=== PATIENT | female | born 1950 | race Caucasian/White ===

== ENCOUNTER 2025-02-27 16:56 | Emergency (ER) | payer MEDICARE, MEDICAID, SELFPAY ==
[2025-02-27] VITALS (12 sets, daily range): BP systolic 154–174; BP diastolic 83–97; PULSE 85–94; TEMP 36.7; O2SAT 97–99; BMI 25.1
--- NOTE | 2025-02-27 17:19 | CT_ITS ---
The [address] [address] Patient Name: NYA EVANS MRN: [id number] date: 1950 Sex: F Assigned Patient Location: ED.MAIN Current Patient Location: ED.MAIN Accession/Order Number: [id number] Exam Date: 02/27/2025 18:20 Report Date: 02/27/2025 18:21 At the request of: IRIS VIVEROS Procedure: CT head/brain wo con Unenhanced head CT TECHNIQUE: Contiguous axial imaging of the head. The CT exam was performed using one or more the following dose reduction techniques: Automated exposure control, adjustment of the MA and/or Kv according to patient size, or use of the iterative reconstruction technique. COMPARISON: None HISTORY: Increasing confusion. VENTRICLES: Within normal limits ATROPHY: Mild atrophy BRAIN PARENCHYMA: Decreased density of the white matter is most consistent with chronic small vessel disease. HEMORRHAGE: None HERNIATION: No mass effect or herniation INFARCTION: No recent vascular distribution infarction is seen. EXTRA-AXIAL FLUID COLLECTIONS None MIDBRAIN: Unremarkable MARIAN: Unremarkable MEDULLA: Unremarkable SINUSES: Unremarkable ORBITS: Grossly unremarkable MASTOIDS: Unremarkable BONY STRUCTURES Intact ADDITIONAL FINDINGS: CT/CT head/brain wo con IMPRESSION: No acute findings. Impression dictated by: Sergio Campos M.D. 02/27/2025 6:21 PM Dictation Location: [place] [address] Electronically authenticated by: [id number] Y Date: 02/27/2025 18:21
--- NOTE | 2025-02-27 17:19 | XR_ITS ---
The [place] [id number] Patient Name: NYA EVANS MRN: [id number] date: 1950 Sex: F Assigned Patient Location: ED.MAIN Current Patient Location: ED.MAIN Accession/Order Number: [id number] Exam Date: 02/27/2025 18:19 Report Date: 02/27/2025 18:20 At the request of: IRIS VIVEROS Procedure: XR chest 1V Plain film chest Single view HISTORY: Increasing confusion. Lower extremity edema COMPARISON: None FINDINGS: SUPPORT DEVICES: None POSTSURGICAL CHANGES: None HEART: Within normal limits PULMONARY VI: Within normal limits MEDIASTINUM: Unremarkable LUNGS AND PLEURA: No acute lung process, pleural effusion or pneumothorax identified. Mild atelectasis BONY STRUCTURES: Degenerative change ADDITIONAL FINDINGS None XR/XR chest 1V IMPRESSION: No acute process. Impression dictated by: Sergio Campos M.D. 02/27/2025 6:20 PM Dictation [facility] Electronically authenticated by: [id number] Y Date: 02/27/2025 18:20
--- NOTE | 2025-02-27 17:19 | ECG_ITS ---
The 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 Measurements Intervals [place] Rate: 87 P: 76 OR: 166 QRS: 61 QRSD: 84 T: 78 QT: 360 QTc: 405 Interpretive Statements 1100 Sinus rhythm 9110 normal ECG No previous ECG available for comparison Electronically Signed On 02-27-2025 20:08:08 EDT by ADEN WAN M.D.
--- NOTE | 2025-02-27 17:19 | PC.NURSE ---
[facility] pharmacy in [place] phoned and obtained allergies and med list.
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
[2025-02-27 17:44] LABS: Basophils Percent Auto 0.5 % (0.2-2.0); Eosinophils Absolute Auto 0.1 10^3/uL (0.0-0.7); Eosinophils Percent Auto 1.5 % (0.9-7.0); Hematocrit 36.4 % (36.0-48.0); Hemoglobin 12.1 g/dL (12.0-16.0); Immature Granulocytes Abs Auto 0.01 10^3/uL (0.00-0.03); Immature Granulocytes Pct Auto 0.2 % (0.0-0.5); Lymphocytes Absolute Auto 1.3 10^3/uL (1.2-3.8); Lymphocytes Percent Auto 22.2 % (20.5-60.0); Mean Corpuscular HGB Conc 33.2 g/dL (29.9-35.2); Mean Corpuscular Hemoglobin 30.3 pg (26.7-34.0); Mean Corpuscular Volume 91.2 fL (81.0-99.0); Mean Platelet Volume 9.6 fL (9.5-13.5); Monocytes Absolute Auto 0.4 10^3/uL (0.3-0.8); Monocytes Percent Auto 6.3 % (1.7-12.0); Neutrophils Absolute Auto 4.2 10^3/uL (1.4-6.5); Neutrophils Percent Auto 69.3 % (43.0-75.0); Platelet Count 278 10^3/uL (150-450); Red Blood Count 3.99 10^6/uL (4.20-5.40); Red Cell Distribution Width 12.9 % (11.0-15.0)
[2025-02-27 17:50] LABS: Bilirubin Urine NEGATIVE (NEGATIVE); Blood Urine NEGATIVE (NEGATIVE); Clarity Urine CLEAR (CLEAR); Color Urine LT. YELLOW (YELLOW); Glucose Urine UA NEGATIVE (NEGATIVE); Ketones Urine TRACE mg/dL (NEGATIVE); Leukocyte Esterase Urine NEGATIVE (NEGATIVE); Nitrite Urine NEGATIVE (NEGATIVE); Protein Urine NEGATIVE (NEG/TRACE); Specific Gravity Urine <=1.005 (1.005-1.025); Urobilinogen Urine 0.2 EU/dL (0.2-1.0)
[2025-02-27 17:59] LABS: Bacteria Urine TRACE #/HPF (NONE SEEN); Cast Seen? NONE SEEN #/LPF (NONE SEEN); Crystals Seen? None Seen #/HPF (None Seen); Mucus Urine NONE SEEN (NONE SEEN); RBC Urine NONE SEEN #/HPF (0-2); Squamous Epithelial Cell Urine NONE SEEN #/LPF (NONE/RARE); Urine Culture Indicated NO; WBC Urine NONE SEEN #/HPF (NONE SEEN)
[2025-02-27 18:09] LABS: Lactate/Lactic Acid 0.5 mmol/L (0.4-2.0)
[2025-02-27 18:17] LABS: Alanine Aminotransferase 27 U/L (14-59); Alkaline Phosphatase 73 U/L (46-116); Anion Gap 13.8; Aspartate Amino Transferase 25 U/L (15-37); BUN Creatinine Ratio 23.9; Bilirubin Total 0.5 mg/dL (0.2-1.0); Calcium 9.1 mg/dL (8.5-10.1); Carbon Dioxide 28.6 mmol/L (21.0-32.0); Chloride 104 mmol/L (98-107); Estimated GFR (African America >60 (>=60 mL/min/1.73m^2); Estimated GFR (Non-African Ame >60 (>=60 mL/min/1.73m^2); Glucose 109 mg/dL (74-106); Potassium 3.4 mmol/L (3.5-5.1); Sodium 143 mmol/L (136-145)
[2025-02-27 18:18] LABS: Albumin Globulin Ratio 1.2; Albumin Level 3.5 g/dL (3.4-5.0); Total Protein 6.5 g/dL (6.4-8.2)
[2025-02-27 18:19] LABS: TSH W/ REFLEX FT4 2.907 uIU/mL (0.358-3.740); Troponin I High Sensitivity 11.9 pg/mL (4.0-51.3)
[2025-02-27 18:30] LABS: Ethanol <3 mg/dL
[2025-02-27] MEDS: KETOROLAC TROMETHAMINE 30 MG/ML VIAL 15 MG IVP (18:46)
[2025-02-27] MEDS: ACETAMINOPHEN 500 MG TABLET 1000 MG PO (18:46)
== END 2025-02-27 19:06 | disposition home or self-care (01) ==
PROVIDERS: Personal Emergency Response Attendant; Emergency Provider Emergency Medicine; PCP Student in an Organized Health Care Education/Training Program
DX: R52 Pain, unspecified (principal); R41.82 Altered mental status, unspecified; R41.3 Other amnesia; F51.3 Sleepwalking [somnambulism]; M13.88 Other specified arthritis, other site; R60.0 Localized edema; Z91.81 History of falling; Z79.899 Other long term (current) drug therapy
CPT/HCPCS: 36415; 70450; 71045; 80053; 80320; 81001; 83605; 83880; 84443; 84484; 85025; 93005; 96374; 99285; J1885

== ENCOUNTER 2025-03-04 11:26 | Emergency (ER) | payer MEDICARE, MEDICAID, SELFPAY ==
[2025-03-04 11:31] VITALS: BP 166/88; PULSE 83; TEMP 36.6; O2SAT 98; BMI 41.2
--- NOTE | 2025-03-04 11:45 | ECG_ITS ---
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 Measurements Intervals [place] Rate: 61 P: 66 ND: 160 QRS: 28 QRSD: 86 T: 50 QT: 396 QTc: 400 Interpretive Statements 1100 Sinus rhythm 8102 Low QRS voltage in chest leads 9120 atypical ECG Compared to ECG 02/27/2025 17:10:40 Low QRS voltage now present Electronically Signed On 03-04-2025 19:28:21 EDT by ADEN WAN M.D.
--- NOTE | 2025-03-04 11:45 | CT_ITS ---
The [address] [address] Patient Name: NYA EVANS MRN: [id number] date: 1950 Sex: F Assigned Patient Location: ER Current Patient Location: ER Accession/Order Number: [id number] Exam Date: 03/04/2025 12:25 Report Date: 03/04/2025 12:26 At the request of: FELY VITAL MD Procedure: CT head/brain wo con CT BRAIN WITHOUT CONTRAST: CLINICAL HISTORY: ams COMPARISON: CT brain 02/27/2025 TECHNIQUE: Contiguous axial unenhanced images were obtained through the brain. This CT exam was performed using one or more following dose reduction techniques: Automated exposure control, adjustment of the mA and/or kV according to patient size, or use of iterative reconstruction technique. FINDINGS: There is no evidence of midline shift, intra or extra-axial fluid collection, hemorrhage or CT evidence of stroke. Cortical atrophy with chronic microvascular ischemic changes. Posterior fossa appears unremarkable. Visualized intraorbital contents demonstrate no acute findings. Visualized paranasal sinuses are clear. The surrounding soft tissues are normal. CT/CT head/brain wo con IMPRESSION: NO ACUTE INTRACRANIAL ABNORMALITY. Impression dictated by: Luisito Kent Jr., D.O. 03/04/2025 12:26 PM Dictation Location: [place] [address] Electronically authenticated by: [id number] Y Date: 03/04/2025 12:26
[2025-03-04 12:15] LABS: Basophils Percent Auto 0.7 % (0.2-2.0); Eosinophils Absolute Auto 0.1 10^3/uL (0.0-0.7); Eosinophils Percent Auto 1.2 % (0.9-7.0); Hematocrit 38.8 % (36.0-48.0); Hemoglobin 12.7 g/dL (12.0-16.0); Immature Granulocytes Abs Auto 0.02 10^3/uL (0.00-0.03); Immature Granulocytes Pct Auto 0.3 % (0.0-0.5); Lymphocytes Absolute Auto 1.3 10^3/uL (1.2-3.8); Lymphocytes Percent Auto 22.1 % (20.5-60.0); Mean Corpuscular HGB Conc 32.7 g/dL (29.9-35.2); Mean Corpuscular Volume 91.7 fL (81.0-99.0); Mean Platelet Volume 9.3 fL (9.5-13.5); Monocytes Absolute Auto 0.4 10^3/uL (0.3-0.8); Neutrophils Absolute Auto 4.1 10^3/uL (1.4-6.5); Neutrophils Percent Auto 69.7 % (43.0-75.0); Platelet Count 276 10^3/uL (150-450); Red Blood Count 4.23 10^6/uL (4.20-5.40); Red Cell Distribution Width 13.2 % (11.0-15.0); White Blood Count 5.9 10^3/uL (4.0-11.0)
[2025-03-04 12:32] LABS: Alanine Aminotransferase 27 U/L (14-59); Albumin Globulin Ratio 1.2; Albumin Level 3.7 g/dL (3.4-5.0); Alkaline Phosphatase 80 U/L (46-116); Anion Gap 13.4; Aspartate Amino Transferase 22 U/L (15-37); BUN Creatinine Ratio 28.6; Bilirubin Total 0.4 mg/dL (0.2-1.0); Calcium 9.3 mg/dL (8.5-10.1); Chloride 101 mmol/L (98-107); Estimated GFR (African America >60 (>=60 mL/min/1.73m^2); Estimated GFR (Non-African Ame >60 (>=60 mL/min/1.73m^2); Glucose 103 mg/dL (74-106); Potassium 3.4 mmol/L (3.5-5.1); Sodium 140 mmol/L (136-145); Total Protein 6.7 g/dL (6.4-8.2); Troponin I High Sensitivity 9.7 pg/mL (4.0-51.3)
[2025-03-04 13:12] LABS: Bilirubin Urine NEGATIVE (NEGATIVE); Blood Urine NEGATIVE (NEGATIVE); Clarity Urine CLEAR (CLEAR); Color Urine LT. YELLOW (YELLOW); Glucose Urine UA NEGATIVE (NEGATIVE); Ketones Urine NEGATIVE (NEGATIVE); Leukocyte Esterase Urine NEGATIVE (NEGATIVE); Nitrite Urine NEGATIVE (NEGATIVE); Protein Urine NEGATIVE (NEG/TRACE); Specific Gravity Urine <=1.005 (1.005-1.025); Urine Microscopic Indicated NO; Urobilinogen Urine 0.2 EU/dL (0.2-1.0)
[2025-03-04 14:20] VITALS: PULSE 76; O2SAT 97
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
--- NOTE | 2025-03-04 15:48 | ED.GENADUL1 ---
HPI HPI - General Adult General Chief complaint: Weakness Stated complaint: OTHER Time Seen by Provider: 03/04/25 11:44 Source: patient Mode of arrival: ambulance Limitations: no limitations History of Present Illness HPI narrative: The patient is coming to us by the EMS after she had felt that she is not safe to drive, the patient is not a good historian she is talking about multiple issues at the same moment, it seems that the patient has been having not enough care for herself at home, when speaking the patient is talking about feeling that she is going mostly to the right side when she is walking, she denies any specific weakness but she mentioned that she has been walking at night and her sleep, The patient is emotional and speaking about her daughter that she adopted that she have to give up because she is not able to take care of her The patient denies any chest pain nausea vomiting or any other concerns She usually ambulates with her walker and apparently she is still driving Related Data Home Medications ?Medication ?Instructions ?Recorded ?Confirmed ezetimibe 10 mg tablet 10 mg PO DAILY 02/27/25 03/04/25 hydrochlorothiazide 12.5 mg tablet 12.5 mg PO DAILY 02/27/25 03/04/25 losartan 50 mg tablet 100 mg PO DAILY 02/27/25 03/04/25 ropinirole 0.5 mg tablet 0.5 mg PO DAILY 02/27/25 03/04/25 duloxetine 30 mg capsule,delayed 30 mg PO DAILY 03/04/25 03/04/25 release Allergies Allergy/AdvReac Type Severity Reaction Status Date / Time codeine Allergy Unknown Verified 03/04/25 11:37 donepezil (From Aricept) Allergy Anaphylaxis Verified 03/04/25 11:37 shellfish derived Allergy Anaphylaxis Verified 03/04/25 11:37 Opioid HPI Opioid Management Most Recent Opioid Data: Last Pain Scale 6 02/27/25, 18:46 Last MAR Pain Assessment 02/27/25, 18:46 Review of Systems ROS Status of ROS 10 or more systems reviewed and unremarkable except as noted in history and below PFSH PFSH Social History Little interest or pleasure in doing things: not at all Feeling down, depressed, or hopeless: not at all Exam Narrative Exam Narrative: Nurses notes and vital signs reviewed and patient is not hypoxic. General: Well-appearing and in no apparent distress. Skin: Warm, dry, no pallor noted. No rash. Head: Normocephalic, atraumatic. Neck: Supple, non-tender. Eye: Pupils are equal, round and EOMI. No scleral icterus. Ears, Nose, Mouth, and Throat: TM are clear, no nasal mucosal hypertrophy. Oral mucosa is moist, no posterior oropharynx erythema, uvula is mid-line Cardiovascular: Regular Rate and Rhythm without murmur, gallop or rub. Respiratory: No accessory muscle use or respiratory distress. Lungs are clear to auscultation, no wheezing, rales or rhonchi Chest Wall: no tenderness Back: No midline thoracic or lumbar vertebral tenderness. No CVA tenderness Musculoskeletal: normal ROM, no calf or popliteal tenderness, no lower extremity edema/swelling GI: Abdomen is soft, non-distended. Normal bowel sounds. No masses appreciated. No tenderness to palpation. No rebound, guarding, or rigidity noted. Neurological: A&O x4. No cranial nerve dysfunction observed. No truncal ataxia. Moves all extremities. Sensation intact. Psychiatric: Cooperative and interactive. Normal mood and affect. Constitutional Vital Signs, click to edit/add: Last Vital Signs Temp 97.8 F 03/04/25 11:31 Pulse 74 03/04/25 16:07 Resp 16 03/04/25 16:07 BP 134/86 03/04/25 16:07 Pulse Ox 99 03/04/25 16:07 O2 Del Method Room Air 03/04/25 16:07 Course Vital Signs Vital signs: Vital Signs Temperature 97.8 F 03/04/25 11:31 Pulse Rate 83 03/04/25 11:31 Respiratory Rate 16 03/04/25 11:31 Blood Pressure 166/88 H 03/04/25 11:31 Pulse Oximetry 98 03/04/25 11:31 Oxygen Delivery Method Room Air 03/04/25 11:31 Temperature 97.8 F 03/04/25 11:31 Pulse Rate 74 03/04/25 16:07 Respiratory Rate 16 03/04/25 16:07 Blood Pressure 134/86 03/04/25 16:07 Pulse Oximetry 99 03/04/25 16:07 Oxygen Delivery Method Room Air 03/04/25 16:07 Medical Decision Making MDM Narrative Medical decision making narrative: The patient EKG showing sinus rhythm with a heart rate of [address] elevation or depression The patient CT of the head was obtained because of the patient concern for right-sided weakness The CBC and chemistry showed no acute significant pathology and the patient CAT scan of the brain showed no acute pathology After initial evaluation ruling out any further acute pathology it was obtained from the previous encounter as well as few days ago that the patient presented with similar symptoms. Patient presentation is mostly social as it seems like she does not have enough care at home she have 2 daughters one of them lives 2 hours away and the other lives almost 4 hours. Both of them are trying to help her to take care of her but she does not want to leave her house and they are trying their best to take care of her while she is at home. 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 The patient was able to ambulate with no difficulty in the ER using her walker and her daughter present at the bedside at that the social research assistant evaluated her care, she have a home health care that will come and evaluate her on Friday for further evaluation and further need of help at home The daughter at the bedside came to get her back home and they have multiple cameras as well there, I did refer the daughter in case of any need to help to come back to the ER The patient is to follow up with primary care physician in next 2-3 days or to return to the emergency department should any of the signs or symptoms worsen or new symptoms develop. The patient agrees with the following Diagnosis and Treatment plan and the patient will be discharged home. Lab Data Labs: Lab Results 03/04/25 03/04/25 Range/Units 12:06 12:40 WBC 5.9 (4.0-11.0) 10^3/uL RBC 4.23 (4.20-5.40) 10^6/uL Hgb 12.7 (12.0-16.0) g/dL Hct 38.8 (36.0-48.0) % MCV 91.7 (81.0-99.0) fL MCH 30.0 (26.7-34.0) pg MCHC 32.7 (29.9-35.2) g/dL RDW 13.2 (11.0-15.0) % Plt Count 276 (150-450) 10^3/uL MPV 9.3 L (9.5-13.5) fL Neut % (Auto) 69.7 (43.0-75.0) % Lymph % (Auto) 22.1 (20.5-60.0) % [place] % (Auto) 6.0 (1.7-12.0) % Eos % (Auto) 1.2 (0.9-7.0) % Baso % (Auto) 0.7 (0.2-2.0) % Neut # (Auto) 4.1 (1.4-6.5) 10^3/uL Lymph # (Auto) 1.3 (1.2-3.8) 10^3/uL [place] # (Auto) 0.4 (0.3-0.8) 10^3/uL Eos # (Auto) 0.1 (0.0-0.7) 10^3/uL Baso # (Auto) 0.0 (0.0-0.1) 10^3/uL Abs Immat Gran (auto) 0.02 (0.00-0.03) 10^3/uL Imm/Tot Granulo (auto) 0.3 (0.0-0.5) % Sodium 140 (136-145) mmol/L Potassium 3.4 L (3.5-5.1) mmol/L Chloride 101 (98-107) mmol/L Carbon Dioxide 29.0 (21.0-32.0) mmol/L Anion Gap 13.4 BUN 18.0 (7.0-18.0) mg/dL Creatinine 0.63 (0.55-1.02) mg/dL Est GFR ( Amer) >60 (>=60 mL/min/1.73m^2) Est GFR (Non-Af Amer) >60 (>=60 mL/min/1.73m^2) BUN/Creatinine Ratio 28.6 Glucose 103 (74-106) mg/dL Calcium 9.3 (8.5-10.1) mg/dL Total Bilirubin 0.4 (0.2-1.0) mg/dL AST 22 (15-37) U/L ALT 27 (14-59) U/L Alkaline Phosphatase 80 (46-116) U/L Troponin I High Sens 9.7 (4.0-51.3) pg/mL Total Protein 6.7 (6.4-8.2) g/dL Albumin 3.7 (3.4-5.0) g/dL Globulin 3.0 g/dL Albumin/Globulin Ratio 1.2 Urine Color Lt. yellow (YELLOW) Urine Clarity Clear (CLEAR) Urine pH 6.0 (5.0-9.0) Ur Specific [place] <=1.005 A (1.005-1.025) Urine Protein Negative (NEG/TRACE) mg/dL Urine Glucose (UA) Negative (NEGATIVE) mg/dL Urine Ketones Negative (NEGATIVE) mg/dL Urine Occult Blood Negative (NEGATIVE) Urine Nitrite Negative (NEGATIVE) Urine Bilirubin Negative (NEGATIVE) Urine Urobilinogen 0.2 (0.2-1.0) EU/dL Ur Leukocyte Esterase Negative (NEGATIVE) Discharge Plan Discharge Chief Complaint: Weakness Clinical Impression: Generalized muscle weakness, Advised to contact social research assistant Patient Disposition: Home, Self-Care Time of Disposition Decision: 15:49 Condition: Good Mode of Transportation: Private Vehicle Prescriptions / Home Meds: No Action duloxetine 30 mg capsule,delayed release(DR/EC) 30 mg PO DAILY ezetimibe 10 mg tablet 10 mg PO DAILY hydrochlorothiazide 12.5 mg tablet 12.5 mg PO DAILY losartan 50 mg tablet 100 mg PO DAILY ropinirole 0.5 mg tablet 0.5 mg PO DAILY Rx Instructions: Takes 2-3 hours before bedtime Print Language: Filipino Instructions: Fall Prevention (ED) Referrals: HARI DIXON DO [Primary Care Provider] - 1 week Discharge Date/Time: 03/04/25 16:07
[2025-03-04 16:07] VITALS: BP 134/86; PULSE 74; O2SAT 99
== END 2025-03-04 16:07 | disposition home or self-care (01) ==
PROVIDERS: Emergency Provider Emergency Medicine; PCP Student in an Organized Health Care Education/Training Program
DX: R53.1 Weakness (principal); R26.81 Unsteadiness on feet
CPT/HCPCS: 36415; 70450; 80053; 81003; 84484; 85025; 93005; 99284

== ENCOUNTER 2025-04-22 06:34 | Outpatient (OUT) | payer MEDICARE, MEDICAID, SELFPAY ==
[2025-04-22 07:00] LABS: Hematocrit 42.1 % (36.0-48.0); Hemoglobin 13.8 g/dL (12.0-16.0); Immature Granulocytes Abs Auto 0.01 10^3/uL (0.00-0.03); Immature Granulocytes Pct Auto 0.2 % (0.0-0.5); Lymphocytes Absolute Auto 1.2 10^3/uL (1.2-3.8); Mean Corpuscular HGB Conc 32.8 g/dL (29.9-35.2); Mean Corpuscular Hemoglobin 30.4 pg (26.7-34.0); Mean Corpuscular Volume 92.7 fL (81.0-99.0); Platelet Count 293 10^3/uL (150-450); Red Blood Count 4.54 10^6/uL (4.20-5.40); White Blood Count 6.6 10^3/uL (4.0-11.0)
[2025-04-22 07:41] LABS: Iron 108.0 ug/dL (50.0-170.0)
[2025-04-22 07:53] LABS: Alanine Aminotransferase 32 U/L (14-59); Albumin Globulin Ratio 1.1; Albumin Level 3.8 g/dL (3.4-5.0); Alkaline Phosphatase 82 U/L (46-116); Anion Gap 12.9; Aspartate Amino Transferase 21 U/L (15-37); Blood Urea Nitrogen 22.0 mg/dL (7.0-18.0); Calcium 9.4 mg/dL (8.5-10.1); Carbon Dioxide 30.5 mmol/L (21.0-32.0); Chloride 104 mmol/L (98-107); Cholesterol 158 mg/dL (<=200); Estimated GFR (African America >60 (>=60 mL/min/1.73m^2); Estimated GFR (Non-African Ame >60 (>=60 mL/min/1.73m^2); Free T3 2.56 pg/mL (2.18-3.98); Globulin 3.4 g/dL; Glucose 118 mg/dL (74-106); HDL Cholesterol 56 mg/dL (40-60); Potassium 3.4 mmol/L (3.5-5.1); Sodium 144 mmol/L (136-145); Thyroid Stimulating Hormone 2.702 uIU/mL (0.358-3.740); Total Protein 7.2 g/dL (6.4-8.2); Triglycerides 81 mg/dL (<=150); VLDL CHOLESTEROL 16.2 mg/dL
== END 2025-04-22 06:35 | disposition home or self-care (01) ==
LOC: LAB 06:37
PROVIDERS: PCP Family Medicine; Visit Provider Family Medicine
DX: R73.09 Other abnormal glucose (principal); I10 Essential (primary) hypertension; G25.81 Restless legs syndrome; E78.00 Pure hypercholesterolemia, unspecified; Z12.12 Encounter for screening for malignant neoplasm of rectum; D64.9 Anemia, unspecified; R53.83 Other fatigue; E55.9 Vitamin D deficiency, unspecified
CPT/HCPCS: 36415; 80053; 80061; 82306; 83036; 83525; 83540; 84436; 84443; 84481; 85025

== ENCOUNTER 2025-05-09 08:45 | Outpatient (OUT) | payer MEDICARE, MEDICAID, SELFPAY | END 2025-05-09 08:46 | disposition home or self-care (01) | PROVIDERS: PCP Family Medicine; Visit Provider Family Medicine | DX: Z12.31 Encounter for screening mammogram for malignant neoplasm of breast (principal) | CPT/HCPCS: 77063; 77067 ==